=== PATIENT | female | born 1960 | race Caucasian/White ===

== ENCOUNTER 2024-07-08 23:25 | Emergency (ER) | payer MEDICAID ==
[~2024-07-08] VITALS: Ht 167.6 cm; Wt 74.0 kg
[2024-07-08 23:28] VITALS: BP 162/98; PULSE 98; RESP 20; TEMP 36.7; O2SAT 99
== END 2024-07-09 01:15 | disposition left against medical advice (07) ==
LOC: ER 23:25
DX: R51.9 Headache, unspecified (principal); I10 Essential (primary) hypertension; Z53.21 Procedure and treatment not carried out due to patient leaving prior to being seen by health care provider